=== PATIENT | male | born 2000 | race Caucasian/White ===

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

== ENCOUNTER 2022-02-08 23:57 | Observation (INO) | payer OTHER ==
[2022-02-09] MEDS ORDERED: LACTATED RINGERS SOLUTION 1000 ML INFUS.BAG IV ONE (00:42)
[2022-02-09] MEDS ORDERED: ACETAMINOPHEN 1000 MG/100 ML BAG IVPB ONE (00:42)
[2022-02-09] MEDS ORDERED: KETOROLAC TROMETHAMINE 15 MG/ML VIAL IVPUSH ONE (00:42)
[2022-02-09] MEDS ORDERED: METOCLOPRAMIDE HCL INJECTION 10 MG/2 ML VIAL IVPB ONE (00:42)
[2022-02-09] MEDS ORDERED: METHOCARBAMOL 500 MG TABLET PO ONE (00:52)
[2022-02-09] MEDS ORDERED: ACETAMINOPHEN INJECTION 100 ML IVPB ONE (00:58)
[2022-02-09] MEDS ORDERED: METHOCARBAMOL 500 MG TABLET ONE (00:58)
[2022-02-09] MEDS ORDERED: KETOROLAC TROMETHAMINE 15 MG/ML VIAL ONE (00:58)
[2022-02-09] MEDS ORDERED: METOCLOPRAMIDE HCL INJECTION 10 MG/2 ML VIAL ONE (00:58)
[2022-02-09 01:25] LABS: BASO % 0.5 % (0-2.0); EOS % 4.8 % (0-4.5); HEMATOCRIT 41.9 % (35.4-49); HEMOGLOBIN 14.2 GM/dL (11.7-16.9); LYMPH % 26.9 % (8-40); MCHC 33.9 g/dl (32.0-35.9); MEAN CELL VOLUME 79.8 fl (80-96); MEAN PLT VOLUME 8.6 fl (7.5-11.1); MONO % 7.4 % (3.8-10.2); NEUT % 60.4 % (42.8-82.8); PLATELET COUNT 198 10^3/uL (134-434); RBC 5.25 M/mm3 (4.00-5.60); RDW 13.5 % (11.9-15.9); WHITE BLOOD COUNT 7.1 K/mm3 (4.0-10.0)
[2022-02-09 01:45] LABS: CHLORIDE 106 mmol/L (98-107); SODIUM 142 mmol/L (136-145)
[2022-02-09 01:47] LABS: ALBUMIN 4.3 g/dl (3.4-5.0); ANION GAP 7 MMOL/L (8-16); BLOOD UREA NITROGEN 14.7 mg/dL (7-18); CALCIUM 9.1 mg/dL (8.5-10.1); CO2 29 mmol/L (21-32); GLUCOSE,RANDOM 93 mg/dL (74-106)
[2022-02-09 01:51] LABS: CREATININE 0.9 mg/dL (0.55-1.3); SGOT/AST 22 U/L (15-37); SGPT/ALT 54 U/L (13-61)
[2022-02-09 01:52] LABS: TOT PROT 7.4 g/dl (6.4-8.2)
[2022-02-09 01:54] LABS: ALK PHOS 54 U/L (45-117)
[2022-02-09] MEDS ORDERED: ASPIRIN 81 MG CHEWABLE TABLETS PO ONE (02:00)
[2022-02-09] MEDS ORDERED: ASPIRIN 81 MG CHEWABLE TABLETS ONE (02:20)
[2022-02-09] MEDS ORDERED: ACETAMINOPHEN 1000 MG/100 ML BAG IVPB PRN (05:07)
[2022-02-09 06:37] LABS: HEMATOCRIT 41.8 % (35.4-49); HEMOGLOBIN 13.8 GM/dL (11.7-16.9); MCH 26.4 pg (25.7-33.7); MCHC 32.9 g/dl (32.0-35.9); MEAN CELL VOLUME 80.3 fl (80-96); MEAN PLT VOLUME 9.3 fl (7.5-11.1); PLATELET COUNT 202 10^3/uL (134-434); RBC 5.21 M/mm3 (4.00-5.60); RDW 13.9 % (11.9-15.9); WHITE BLOOD COUNT 7.2 K/mm3 (4.0-10.0)
[2022-02-09 06:49] VITALS: RESP 18
[2022-02-09 06:59] LABS: CHLORIDE 107 mmol/L (98-107); SODIUM 143 mmol/L (136-145)
[2022-02-09 07:00] LABS: ANION GAP 8 MMOL/L (8-16); BLOOD UREA NITROGEN 14.4 mg/dL (7-18); CALCIUM 9.1 mg/dL (8.5-10.1); CO2 28 mmol/L (21-32); GLUCOSE,RANDOM 148 mg/dL (74-106); MAGNESIUM 2.2 mg/dL (1.8-2.4)
[2022-02-09 07:02] LABS: INR 1.08 (0.83-1.09); PROTHROMBIN TIME (PATIENT) 12.4 SEC (9.7-13.0)
[2022-02-09 10:35] VITALS: BP 139/73; PULSE 69; TEMP 97.3
[2022-02-09 10:49] VITALS: BMI 32.1
[2022-02-09 11:57] LABS: ERYTHROCYTE SEDIMENTATION RATE 2 mm/hr (0-10)
[2022-02-09 17:03] LABS: OPIATES, URI NEGATIVE (NEGATIVE)
[2022-02-09 17:04] LABS: PHENCYCLIDINE,URINE NEGATIVE (NEGATIVE); URINE BENZODIAZEPINES NEGATIVE (NEGATIVE)
[2022-02-09 17:05] LABS: COCAINE, UR NEGATIVE (NEGATIVE)
[2022-02-09 17:08] LABS: URINE BARBITURATES NEGATIVE (NEGATIVE)
[2022-02-09 17:12] LABS: METHADONE, UR NEGATIVE (NEGATIVE); URINE AMPHETAMINES NEGATIVE (NEGATIVE)
== END 2022-02-09 17:45 | disposition home or self-care (01) ==
LOC: JER 23:57 → JERBED 02-09 01:59 → J4W 02-09 07:47
PROVIDERS: ADMIT Internal Medicine; ATTEND Family Medicine
PROC: 3E0337Z Introduction of Electrolytic and Water Balance Substance into Peripheral Vein, Percutaneous Approach (ICD-10-PCS; principal; 2022-02-09)
PROC: 3E033GC Introduction of Other Therapeutic Substance into Peripheral Vein, Percutaneous Approach (ICD-10-PCS; 2022-02-09)
PROC: 3E033NZ Introduction of Analgesics, Hypnotics, Sedatives into Peripheral Vein, Percutaneous Approach (ICD-10-PCS; 2022-02-09)
DX: R07.89 Other chest pain (principal); R06.00 Dyspnea, unspecified; R94.31 Abnormal electrocardiogram [ECG] [EKG]; R77.8 Other specified abnormalities of plasma proteins; E66.8 Other obesity; Z68.32 Body mass index [BMI] 32.0-32.9, adult
CPT/HCPCS: 36415; 70450-TC; 71046-TC-FY; 80048; 80053; 80307; 83735; 84484; 85025; 85027; 85379; 85610; 85651; 85730; 86140; 93005; 93010; 93306-TC; 96361; 96374; 96375; 99285-25; C9803-CS; G0378; U0003; U0005